=== PATIENT | male | born 1975 | race Hispanic/Latino ===

== ENCOUNTER 2021-02-10 12:23 | Outpatient (CLI) | payer OTHER ==
[2021-02-10 13:28] LABS: Alanine Aminotransferase 48 units/L (7-56); Albumin 3.9 g/dL (3.9-5); BUN/Creatinine Ratio 14; Blood Urea Nitrogen 14 mg/dL (9-20); Calcium 9.3 mg/dL (8.4-10.2); Chol/HDL Ratio 4.19 %; HDL Cholesterol 31 mg/dL (40-59); Hemolysis Index 20; LDL Cholesterol,Direct 91 mg/dL (50-130)
[2021-02-10 13:29] LABS: Basophils # (Auto) 0.1 K/mm3 (0.0-0.1); Eosinophils # (Auto) 0.2 K/mm3 (0.0-0.4); Eosinophils % (Auto) 3.2 % (0.0-4.3); Hematocrit 49.3 % (35.5-45.6); Hemoglobin 16.6 gm/dl (11.8-15.2); Lymphocytes # (Auto) 2.4 K/mm3 (1.2-5.4); Lymphocytes % (Auto) 32.6 % (13.4-35.0); Mean Corpuscular HGB Conc 34 % (32-34); Mean Corpuscular Volume 84 fl (84-94); Monocytes # (Auto) 0.8 K/mm3 (0.0-0.8); Platelet Count 186 K/mm3 (140-440); Red Blood Count 5.84 M/mm3 (3.65-5.03); Red Cell Distribution Width 14.3 % (13.2-15.2)
[2021-02-10 14:17] LABS: ABG Base Excess 1.2 mmol/L (-2.0-3.0); ABG HCO3 23.3 mmol/L (20.0-26.0); ABG Methemoglobin 0.5 % (0.0-1.5); ABG Oxygen Saturation 96.3 % (95.0-99.0); ABG PCO2 38.6 mm Hg; ABG PH 7.398 pH Units (7.350-7.450); ABG PO2 80.6 mm Hg (80.0-90.0)
--- NOTE | 2021-02-10 14:33 | XRay Report ---
CHEST 2 VIEWS INDICATION / CLINICAL INFORMATION: HYPERTENSION. COMPARISON: None available. FINDINGS: SUPPORT DEVICES: None. HEART / MEDIASTINUM: No significant abnormality. LUNGS / PLEURA: No significant pulmonary or pleural abnormality. No pneumothorax. ADDITIONAL FINDINGS: No significant additional findings. IMPRESSION: 1. No acute findings. Signer Name: Roge Marin MD Signed: 02/10/2021 2:28 PM Workstation Name: [id number]
--- NOTE | 2021-02-11 10:07 | Electrocardiograph Report ---
[facility] Test Date: 2021-02-10 Test Time: 14:32:53 Pat Name: EUSEBIA BARRON JR Department: Room: Gender: M Relief Pilot: AALIYAH : 1975 Requested By: GABY NELSON Order Number: [id number] Reading MD: Mega Mariee Measurements Intervals Ferron Rate: 74 P: 7 DE: 178 QRS: 11 QRSD: 99 T: 58 QT: 377 QTc: 419 Interpretive Statements Sinus rhythm No previous ECG available for comparison Electronically Signed On 02-11-2021 10:06:58 EDT by Mega Mariee
== END 2021-02-10 12:24 | disposition home or self-care (01) ==
LOC: LAB 12:23
PROVIDERS: ATTEND Internal Medicine
DX: I10 Essential (primary) hypertension (principal); G47.9 Sleep disorder, unspecified
CPT/HCPCS: 36415; 71046; 80053; 80061; 82803; 84436; 84443; 85025; 93005

== ENCOUNTER → 2021-03-08 | Outpatient (CLI) | payer OTHER | END | disposition home or self-care (01) | LOC: SLR 11:00 | PROVIDERS: ATTEND Internal Medicine | DX: G47.30 Sleep apnea, unspecified (principal) | CPT/HCPCS: G0399 ==

== ENCOUNTER 2021-05-08 11:00 | Outpatient (CLI) | payer OTHER | END 2021-05-08 11:01 | disposition home or self-care (01) | LOC: SLR 11:00 | PROVIDERS: ATTEND Internal Medicine | DX: G47.33 Obstructive sleep apnea (adult) (pediatric) (principal) | CPT/HCPCS: 95811 ==